=== PATIENT | female | born 1985 | race Caucasian/White ===

== ENCOUNTER 2017-02-15 09:26 | Outpatient (CLI) | payer OTHER ==
[~2017-02-15] VITALS: Ht 162.6 cm; Wt 75.2 kg
--- NOTE | 2017-02-15 10:00 | HP ---
Date/Time of Note Date/Time of Note DATE: 02/15/17 TIME: 09:59 OB - History Hx of Present Free Text/Dictation @40+wks GA : 2 Para: 1 Care: Good Care Ultrasounds: Normal mid trimester US Obstetrical Complications: None Medical Complications: None Past Family/Social History * Past Medical, Surgical, Family and Obstetric Histories reviewed from chart. OB Admission Exam Physical Exam Cervical Dilatation: 2cm Effacement: 75% Station: -1 Membranes: Intact Heart Rate: 140's Accelerations: Accelerations Present Decelerations: No Decelerations Varibility: Marked OB Assessment/Plan Reason for admission: observation Plan: Expectant Management Induction Method: per Pitocin Protocol FANTASMA BAILEY M.D. Feb 15, 2017 10:00
[2017-02-15] MEDS ORDERED: LACTATED RINGER'S 1,000 ML IV SCH (10:21)
[2017-02-15 10:24] VITALS: BP 113/79; PULSE 92; RESP 18; Ht 162.6 cm; Wt 75.2 kg
[2017-02-15] MEDS ORDERED: METHYLERGONOVINE 0.2 MG INJ IM PRN (10:30)
[2017-02-15] MEDS ORDERED: BUTORPHANOL 2 MG INJ IV PRN ×2 (10:30)
[2017-02-15] MEDS ORDERED: CARBOPROST 250 MCG INJ IM PRN (10:30)
[2017-02-15] MEDS ORDERED: OXYTOCIN 30 UNITS/LR 500 ML IV SCH ×3 (10:30)
[2017-02-15] MEDS ORDERED: IBUPROFEN 600 MG TAB PO PRN (10:30)
[2017-02-15] MEDS ORDERED: MINERAL OIL LIGHT 10 ML VIAL TOP ONE (10:30)
[2017-02-15] MEDS ORDERED: LACTATED RINGER'S 1,000 ML IV PRN (10:30)
[2017-02-15] MEDS ORDERED: LIDOCAINE 1% (MPF) 30 ML INJ INJ PRN (10:30)
[2017-02-15] MEDS ORDERED: MISOPROSTOL 200 MCG TAB PR PRN (10:30)
[2017-02-15] MEDS ORDERED: OXYTOCIN 30 UNITS/LR 500 ML IV PRN (10:30)
[2017-02-15] MEDS ORDERED: HYDROCODONE/APAP (5/325) TAB PO PRN (10:30)
--- NOTE | 2017-02-15 11:25 | RADRPT ---
PROCEDURE: OB ultrasound for biophysical profile CLINICAL INDICATION: Contractions TECHNIQUE: Multiple sonographic images of the pelvis were obtained. Transabdominal views of the g ravid uterus are available for review. The images were reviewed on a PACS workstation. COMPARISON: None FINDINGS: breathing movement = 2/2 tone = 2/2 motion = 2/2 JOVAN = 2/2 JOVAN = 11.9 cm Single live intrauterine with cardiac activity of 134 bpm. position is cephal ic. The placenta is posterior. IMPRESSION: 1. Single live intrauterine gestation. 2. Biophysical profile = 8. 3. JOVAN = 11.9 cm. RPTAT: HH .Milla Miranda MD, MD Date Time Electronically viewed and signed by .Milla Miranda MD, on 02/15/2017 11:25 .G/
--- NOTE | 2017-02-15 11:29 | RADRPT ---
PROCEDURE: US OB. CLINICAL INDICATION: Size and dates TECHNIQUE: Multiple sonographic images of the pelvis were obtained. Transabdominal imaging only w as performed. The images were reviewed on a PACS workstation. COMPARISON: No prior studies are available for comparison. FINDINGS: There is a single live intrauterine gestation. Cardiac activity is present with 143 beats per minut e. position is cephalic. Measurements were made in order to determine age. The results are as follows: BPD = 9.09 cm HC = 32.25 cm AC = 35.22 cm FL = 7.35 cm. Estimated gestational age of approximately 37 weeks 4 days. The estimated date of delivery is 03/04/2017. The EFW = 3422 g, 29.8 %ile. The placenta is posterior. There is no evidence for an abruption or placenta previa. There are no adnexal masses. IMPRESSION: 1. Single live intrauterine gestation of approximately 37 weeks 4 days, by ultrasound criteria. 2. The estimated date of delivery is 03/04/2017. 3. The estimated weight is 3422 g, 29.8 %ile. RPTAT: HH .Milla Miranda MD, Date Time Electronically viewed and signed by .Milla Miranda MD, on 02/15/2017 11:29 .G/
--- NOTE | 2017-02-15 12:45 | TRIAGE ---
OB Triage Datetime Report Generated by CPN: 02/15/2017 12:45 Datetime: 02/15/2017 12:32 Labor Evaluation Frequency: irreg Monitor Mode: External Duration (sec)2399: 30-2mins Quality: Mild Pattern: Normal: <= 5 Contractions in 10 Minutes Resting Tone Satsuma: Relaxed Heart Rate FHR Baseline Rate: 135 Monitor Mode: External US Variability: Moderate 6-25 bpm Accelerations: 15X15 Decelerations: None Category: Category I Pain Assessment Pain Presence: None/Denies Pain Type: N/A Datetime: 02/15/2017 12:01 Labor Evaluation Frequency: x1 Monitor Mode: External Duration (sec)2399: 3mins Quality: Mild Pattern: Normal: <= 5 Contractions in 10 Minutes Resting Tone S[place]uma: Relaxed Heart Rate FHR Baseline Rate: 135 Monitor Mode: External US Variability: Moderate 6-25 bpm Accelerations: 15X15 Decelerations: Variable Category: Category II Pain Assessment Pain Presence: None/Denies Pain Type: N/A Datetime: 02/15/2017 10:32 Labor Evaluation Frequency: IRREG Monitor Mode: External Duration (sec)2399: 50-80 Quality: Mild Pattern: Normal: <= 5 Contractions in 10 Minutes Resting Tone S[place]: Relaxed Heart Rate FHR Baseline Rate: 150 Monitor Mode: External US Variability: Moderate 6-25 bpm Accelerations: 15X15 Decelerations: None Category: Category I Datetime: 02/15/2017 10:06 Labor Evaluation Frequency: IRREG Monitor Mode: External Duration (sec)2399: 50-80 Quality: Mild Pattern: Normal: <= 5 Contractions in 10 Minutes Resting Tone Satsuma: Relaxed Heart Rate FHR Baseline Rate: 145 Monitor Mode: External US Variability: Moderate 6-25 bpm Accelerations: 15X15 Decelerations: None Category: Category I Comments: NST REACTIVE FOR GESTATIONAL AGE Datetime: 02/15/2017 09:47 Vaginal Exam Dilatation (cms): 2.5 Effacement (%): 80 Station: -2 Exam By: princess Datetime: 02/15/2017 09:45 Time of Arrival: 02/15/2017 09:20 EGA: 40.2 Arrived By: Ambulatory Arrived From: Home Chief Complaint: POST DATES NST AND BPP Movement: Present Contractions: Denies/Absent Contractions: IRREG Rupture of Membranes: Denies Vaginal Bleeding: None Vaginal Discharge: Denies Recent Sexual Intercouse: Denies Abdominal Trauma: Not Applicable Patient Complaints: None Patient Complaints: None Time Provider Notified: 02/15/2017 11:34 Time Provider Notified: 02/15/2017 09:55 Provider Notified: Provider Notified: DR. BAILEY Initial Plan: SVE Datetime: 02/15/2017 09:43 Vaginal Exam Dilatation (cms): 2.5 Effacement (%): 80 Station: -3 Exam By: OGBOIVON Cervix, Consistency: Soft
--- NOTE | 2017-02-15 12:51 | PN ---
Triage Information Date/Time Feb 15, 2017 at 09:55 Reason for visit: Postdates Weeks of Gestation 40w 2d /Para 2/1 Diabetes: none Hypertention: none Additional information PMHx: none. POBHx: x 1 at 40 weeks; went into labor on own. PSHx: none. NKDA. Objective Vital Signs Date Time Temp Pulse Resp B/P Pulse Ox O2 Delivery O2 Flow Rate FiO2 02/15/17 10:24 98.1 92 18 113/79 95 Room Air Heart Rate: 130's Heart Rate Comments Accels to 165 bpm. No decels. Contractions: >10 Minutes Apart Exam 80%/2-3/-2/intact. Results/Medications Medications Current Medications Lactated Ringer's 1,000 ml @ 125 mls/hr Q8H IV ; Start 02/15/17 at 10:21 Oxytocin/Lactated Ringer's 500 ml @ 0 mls/hr TITRATE IV ; Start 02/15/17 at 10: 30 Butorphanol Tartrate (Stadol) 1 mg Q2H PRN IV PAIN; Start 02/15/17 at 10:30 Butorphanol Tartrate (Stadol) 2 mg Q2H PRN IV PAIN; Start 02/15/17 at 10:30 Lidocaine 30 ml 30 ml ONCE PRN INJ EPISIOTOMY/TEARING; Start 02/15/17 at 10:30 Oxytocin/Lactated Ringer's 500 ml @ 125 mls/hr ONCE IV ; Start 02/15/17 at 10: 30 Ibuprofen (Motrin) 600 mg ONCE PRN PO Mild Pain (Pain Score 1-3); Start at 10:30 Acetaminophen/ Hydrocodone Bitart 2 tab 2 tab ONCE PRN PO Moderate to Severe Pain (4-10); Start 02/15/17 at 10:30 Lactated Ringer's 1,000 ml @ 2,000 mls/hr Q30M PRN IV PRE-EPIDURAL BOLUS; Start 02/15/17 at 10:30 Oxytocin/Lactated Ringer's 500 ml @ 0 mls/hr ONCE PRN IV For Hemorrhage Management; Start 02/15/17 at 10:30 Methylergonovine Maleate (Methergine) 0.2 mg ONCE PRN IM VAGINAL BLEEDING; Start 02/15/17 at 10:30 Carboprost Tromethamine (Hemabate) 250 mcg ONCE PRN IM VAGINAL BLEEDING; Start 02/15/17 at 10:30 Misoprostol (Cytotec) 1,000 mcg ONCE PRN IN VAGINAL BLEEDING; Start 02/15/17 at 10:30 Imaging Results BPP 12/04. JOVAN 11.9 cm. Disposition: Discharge Assessment/Plan A: IUP at 40w 2d. Postdates. P: Per RN Dr Aden wished for this pt to be d/c'ed home as she is not in labor. Pt also wishes to be d/c'ed home. D/C home with labor precautions. As pt went into labor around this time with her first baby I would expect her to do the same with this one. If not yet delivered by 02/18 then is to return for a repeat BPP/NST. DIANDRA MANN MD Feb 15, 2017 12:51
== END 2017-02-15 12:41 | disposition home or self-care (01) ==
LOC: OBT 09:26 → L-D 09:26 → UNDOADMIN 09:55 → OBT 09:59
PROVIDERS: ATTEND Obstetrics & Gynecology
DX: O48.0 Post-term pregnancy (principal); Z3A.40 40 weeks gestation of pregnancy
CPT/HCPCS: 76815; 76818; G0463; J7120

== ENCOUNTER 2017-02-17 08:12 | Inpatient (IN) | payer OTHER ==
[~2017-02-17] VITALS: Ht 162.6 cm; Wt 75.2 kg
[2017-02-17 08:26] VITALS: Ht 162.6 cm; Wt 75.2 kg
[2017-02-17 08:27] VITALS: BP 111/69; PULSE 86; RESP 18
[2017-02-17] MEDS ORDERED: CARBOPROST 250 MCG INJ IM PRN ×2 (08:30→21:00)
[2017-02-17] MEDS ORDERED: BUTORPHANOL 2 MG INJ IV PRN (08:30)
[2017-02-17] MEDS ORDERED: IBUPROFEN 600 MG TAB PO PRN (08:30)
[2017-02-17] MEDS ORDERED: OXYTOCIN 30 UNITS/LR 500 ML IV SCH ×3 (08:30→10:30)
[2017-02-17] MEDS ORDERED: LIDOCAINE 1% (MPF) 30 ML INJ INJ PRN (08:30)
[2017-02-17] MEDS ORDERED: OXYTOCIN 30 UNITS/LR 500 ML IV PRN ×2 (08:30→21:00)
[2017-02-17] MEDS ORDERED: METHYLERGONOVINE 0.2 MG INJ IM PRN ×2 (08:30→21:00)
[2017-02-17] MEDS ORDERED: LACTATED RINGER'S 1,000 ML IV PRN (08:30)
[2017-02-17] MEDS ORDERED: MISOPROSTOL 200 MCG TAB PR PRN ×2 (08:30→21:00)
[2017-02-17] MEDS: LACTATED RINGER'S 1,000 ML IV SCH ×2 (08:55→14:24)
[2017-02-17 09:27] LABS: BASOPHILS % 0.1 % (0.0-2.0); EOSINOPHILS % 0.4 % (0.0-7.0); HEMATOCRIT 32.1 % (37.0-47.0); HEMOGLOBIN 11.3 g/dl (12.0-16.0); LYMPHOCYTES # 1.2 10^3/ul (0.8-2.9); LYMPHOCYTES % 16.6 % (15.0-51.0); MEAN CORPUSCULAR HEMOGLOBIN 34.2 pg (29.0-33.0); MEAN CORPUSCULAR HGB CONC 35.2 g/dl (32.0-37.0); MEAN CORPUSCULAR VOLUME 97.3 fl (82.0-101.0); MONOCYTE # 0.6 10^3/ul (0.3-0.9); MONOCYTES % 8.9 % (0.0-11.0); NEUTROPHIL # 5.3 10^3/ul (1.6-7.5); NEUTROPHILS % 73.4 % (39.0-77.0); PLATELET COUNT 168 10^3/UL (140-415); RED CELL DISTRIBUTION WIDTH 12.7 % (11.5-14.5); WHITE BLOOD COUNT 7.2 10^3/ul (4.8-10.8)
[2017-02-17 09:50] LABS: INR 0.89; PARTIAL THROMBOPLASTIN TIME 28.1 Sec (25.0-35.0); PT RATIO 0.9
[2017-02-17] MEDS ORDERED: FENTAnyl 2MCG/ML-ROPIV 0.2% 100 ML ONE (14:38)
[2017-02-17] MEDS ORDERED: MINERAL OIL LIGHT 10 ML VIAL TOP ONE (15:30)
[2017-02-17] MEDS ORDERED: FENTAnyl 2MCG/ML-ROPIV 0.2% 100 ML BAG EPI SCH (16:00)
[2017-02-17] MEDS ORDERED: NALOXONE (0.4 MG/ML) INJ IV PRN (16:00)
--- NOTE | 2017-02-17 16:29 | HP ---
Date/Time of Note Date/Time of Note DATE: 02/17/17 TIME: 16:26 OB - History Hx of Present Free Text/Dictation Admitted complaining of a spontaneous rupture of membranes at 3:30 AM February 17 and labor pain started at 7 AM Last Menstrual Period: May 09, 2016 Estimated Due Date: Feb 13, 2017 : 2 Para: 1 Care: Good Care Ultrasounds: Normal mid trimester US Obstetrical Complications: None Medical Complications: None Past Family/Social History * Past Medical, Surgical, Family and Obstetric Histories reviewed from chart. Blood Type: A+ Rubella: immune RPR/VDRL: Negative GBS Status: Negative HBsAG: Negative OB Admission Exam Vital Signs Vital Signs Vital Signs Date Time Temp Pulse Resp B/P Pulse Ox O2 Delivery O2 Flow Rate FiO2 02/17/17 08:27 97.6 86 18 111/69 Room Air Physical Exam HEENT: WNL Heart: Rhythm Normal Lungs: Clear, Equal Abdomen: WNL Extremities: Normal Reflexes: Normal Cervical Dilatation: 4cm Effacement: 100% Station: -3 Membranes: Ruptured Amniotic Fluid: Clear Heart Rate: 140's Accelerations: Accelerations Present Decelerations: No Decelerations Varibility: Marked Contractions on Admission: < 5 Minutes Apart Date/Time Contractions Began: February 17, 2017 at 7:00 AM Frequency of Contractions: Every 3 4 min Duration: Over 60 seconds Intensity: Firm Last 72 hours Lab Results CBC & BMP 02/17/17 09:00 OB Assessment/Plan Reason for admission: active labor Other Assessment: 40+ weeks gestation Other plan: Augment labor if possible CLAUDIO VANG MD Feb 17, 2017 16:29
--- NOTE | 2017-02-17 16:30 | LDN ---
Date/Time of Note Date/Time of Note DATE: 02/17/17 TIME: 16:29 Delivery Summary Normal spontaneous vaginal delivery of a viable over intact perineum Weeks of Gestation 40 weeks and 3 days 4 days Placenta Delivered: Spontaneously, Intact & Complete Meconium: none Episiotomy: No Perineal laceration: 2 Laceration repair: Second-degree perineal laceration was repaired in layers using 2-0 Vicryl and 2-0 chromic in normal fashion Anesthesia type: Epidural Estimated blood loss: 300 Sponge & Needle done & correct: Yes All needle counts correct: Yes Any foreign bodies felt in the: No Problems: Delivery Information Sex Infant Sex: female Apgars 1 Minute: 9 5 Minute: 9 Suctioning Nose & mouth suctioned at liat: Yes Delee suction performed: No Umbilical Cord Umbilical cord with: 3 Vessels Cord presentations: nuchal cord Nuchal cord present X: 1 Cord Blood was obtained: Yes Mother & Baby Disposition Disposition Mom & Baby to Maternity; Good: Yes (Mother and baby were recovered in good condition) Mom transferred to: Other (Maternity) Baby to NICU: No CLAUDIO VANG MD Feb 17, 2017 16:30
[2017-02-17 20:15] VITALS: BP 112/68; RESP 20
[2017-02-17] MEDS: CEPHALEXIN 500 MG CAP PO SCH ×2 (21:00→23:35)
[2017-02-17] MEDS ORDERED: ZOLPIDEM 5 MG TAB PO PRN (21:00)
[2017-02-17] MEDS ORDERED: HYDROCODONE/APAP (5/325) TAB PO PRN ×2 (21:00)
[2017-02-17] MEDS: ESTROGENS CONJUGATED 42.5 GM VAG CR TOP SCH (21:00)
[2017-02-17] MEDS: IBUPROFEN 600 MG TAB PO SCH ×2 (21:00→23:35)
[2017-02-17] MEDS ORDERED: WITCH HAZEL/GLYCERIN PAD PR PRN (21:00)
[2017-02-17] MEDS ORDERED: LANOLIN 7 GM TUBE TOP PRN (21:00)
[2017-02-17] MEDS ORDERED: BENZOCAINE 20% 56 ML SPRAY TOP PRN (21:00)
[2017-02-17] MEDS ORDERED: DIBUCAINE 1% 30 GM OINT PR PRN (21:00)
[2017-02-17] MEDS: SENNA/DOCUSATE NA (8.6MG/50MG) TAB PO SCH (21:05)
[2017-02-17] MEDS: LACTATED RINGER'S 1,000 ML IV* SCH (21:05)
[2017-02-17] MEDS: MAGNESIUM HYDROXIDE 30ML CUP PO SCH (21:05)
[2017-02-18 04:00] VITALS: BP 118/76; PULSE 64; RESP 20
[2017-02-18] MEDS: LACTATED RINGER'S 1,000 ML IV* SCH (04:34)
[2017-02-18] MEDS: IBUPROFEN 600 MG TAB PO SCH ×3 (05:46→17:28)
[2017-02-18] MEDS: CEPHALEXIN 500 MG CAP PO SCH ×3 (05:46→17:28)
[2017-02-18 07:30] VITALS: BP 109/67; PULSE 77; RESP 18
[2017-02-18] MEDS: SENNA/DOCUSATE NA (8.6MG/50MG) TAB PO SCH ×2 (09:14→21:02)
[2017-02-18] MEDS: ESTROGENS CONJUGATED 42.5 GM VAG CR TOP SCH ×2 (09:14→21:00)
[2017-02-18] MEDS: MAGNESIUM HYDROXIDE 30ML CUP PO SCH ×2 (09:14→21:00)
[2017-02-18 10:57] LABS: BASOPHILS % 0.1 % (0.0-2.0); EOSINOPHILS # 0.1 10^3/ul (0.0-0.5); EOSINOPHILS % 0.5 % (0.0-7.0); HEMATOCRIT 33.8 % (37.0-47.0); HEMOGLOBIN 11.1 g/dl (12.0-16.0); LYMPHOCYTES # 1.4 10^3/ul (0.8-2.9); LYMPHOCYTES % 13.3 % (15.0-51.0); MEAN CORPUSCULAR HEMOGLOBIN 32.6 pg (29.0-33.0); MEAN CORPUSCULAR HGB CONC 32.8 g/dl (32.0-37.0); MEAN CORPUSCULAR VOLUME 99.1 fl (82.0-101.0); MEAN PLATELET VOLUME 10.3 fl (7.4-10.4); MONOCYTE # 0.6 10^3/ul (0.3-0.9); MONOCYTES % 5.7 % (0.0-11.0); NEUTROPHIL # 8.7 10^3/ul (1.6-7.5); PLATELET COUNT 185 10^3/UL (140-415); RED BLOOD COUNT 3.41 10^6/ul (4.20-5.40); RED CELL DISTRIBUTION WIDTH 13.2 % (11.5-14.5); WHITE BLOOD COUNT 10.8 10^3/ul (4.8-10.8)
--- NOTE | 2017-02-18 15:41 | DS ---
Date/Time of Note Date/Time of Note Home next day DATE: 02/18/17 TIME: 15:40 Obstetrical Discharge Record Final Diagnosis Final Diagnosis: Term delivered Other Final Diagnosis Status post vaginal delivery Vaginal Delivery Obstetrical Delivery: Spontaneous, Laceration, Repaired Complications Augmentation: Yes Condition on Discharge Physical Assessment Last Vitals: See nurse's notes Voiding: Yes Bowel Movement: Yes Breast: Soft, non-tender, Filling Fundus: Firm Abdomen and Incision: Abdomen is soft bowel sounds present fundus is firm Episiotomy: Perineum is healing Calf Tenderness: No Patient Condition: Good CLAUDIO VANG MD Feb 18, 2017 15:41
--- NOTE | 2017-02-18 15:42 | PD.PPDC ---
PATIENT COORDINATOR FRONT DESK Discharge Instruction Provider Information Physician Information [facility] 31-year-old female had vaginal delivery at term Diagnosis Final Diagnosis: Status post vaginal delivery Condition Patient Condition: Good Diet Diet: Resume Regular Diet Activity/Restrictions Activity: Normal Activity May Shower Restrictions: Nothing in the Vagina Return to Work or School: Apr 08, 2017 Follow-up Follow-up with Physician: 4, Week/Weeks Return to clinic for [employer] Instructions: Fever greater than 101 Chills Comment: Pelvic rest 6 weeks CLAUDIO VANG MD Feb 18, 2017 15:42
[2017-02-18] MEDS ORDERED: IBUP-1542 PO (15:43)
[2017-02-18 16:00] VITALS: BP 113/73; PULSE 73; RESP 19
[2017-02-18 20:00] VITALS: BP 114/87; PULSE 90; RESP 18
[2017-02-19] MEDS ORDERED: VARICELLA VACCINE LIVE/PF 1,350 UNIT/0.5 ML ML SC* ONE (09:00)
[2017-02-19] MEDS ORDERED: MEASLES,MUMPS,RUBELLA VACCINE INJ SC* ONE (09:00)
[2017-02-19] MEDS ORDERED: DIPHTH/TET/ACEL PERTUSS (ADULT) 0.5 ML VIAL IM* ONE (09:00)
[2017-02-19] MEDS ORDERED: INFLUENZA VIRUS VACCINE 0.5 ML (DISPENSING) IM* ONE (09:00)
== END 2017-02-18 21:35 | disposition home or self-care (01) | DRG 775 ==
LOC: L-D 08:12 → PP1 20:10
PROVIDERS: ADMIT Obstetrics & Gynecology; ATTEND Obstetrics & Gynecology
PROC: 10E0XZZ Delivery of Products of Conception, External Approach (ICD-10-PCS; principal; 2017-02-17)
PROC: 0KQM0ZZ Repair Perineum Muscle, Open Approach (ICD-10-PCS; 2017-02-17)
DX: O48.0 Post-term pregnancy (principal); O70.1 Second degree perineal laceration during delivery; Z37.0 Single live birth; Z3A.40 40 weeks gestation of pregnancy
CPT/HCPCS: 62319; 84112; 85025; 85610; 85730; 86592; 86900; 86901; 87340; J2590; J3010; J7120